=== PATIENT | male | born 1985 | race Two or more races ===

== ENCOUNTER → 2025-03-02 | Emergency (ER) | payer MEDICAID, OTHER ==
[~2025-03-02] VITALS: Ht 185.4 cm; Wt 126.0 kg
[~2025-03-02] MED LIST: IBU600T PO
[2025-03-02 21:52] VITALS: BP 139/82; PULSE 84; RESP 18; TEMP 98.3; O2SAT 98
== END ==
LOC: ER 20:16
DX: M25.562 Pain in left knee (principal); Z53.21 Procedure and treatment not carried out due to patient leaving prior to being seen by health care provider

== ENCOUNTER 2025-03-03 05:07 | Emergency (ER) | payer MEDICAID ==
[~2025-03-03] VITALS: Ht 185.4 cm; Wt 125.4 kg
--- NOTE | 2025-03-03 07:03 | ED.PDOC ---
Musculoskeletal HPI Comments 39 year old male presents to the ED with a chief complaint of LT knee pain onset 1 day. Patient states he slipped, landed on LT knee, is currently experiencing LT knee pain. Patient states he held onto a rail with LT arm, woke up today experiencing LT shoulder pain. Denies PMHx as well as head injury, LOC, nausea, vomiting, numbness/tingling of extremities. No other symptoms or modifying factors present at this time. Chief Complaint: Lower Extremity Time Seen by MD: 06:55 Reviewed Notes: Medications, Allergies Allergies: Coded Allergies: NO KNOWN ALLERGIES (Unverified , 03/02/25) Home Meds Active Scripts Ibuprofen Micronized (MOTRIN TABLET) 600 Mg Tb, 600 MG PO TID PRN for 3 Days, #9 TAB *Black box warning-NSAIDS can increase risk of AK & hypertension, GI irritation, ulceration, bleed, perferation. Do not use post cardiac surgery. Use short duration/lowest effective dose. Prov:MYRIAM VALLE MD 03/03/25 Information Source: Patient Mode of Arrival: Ambulatory Location: Left Extremity Location: Knee, Shoulder Timing: Days Prehospital treatment: None Severity: Moderate Able to Move Extremity: Yes Bear Weight: Limited Pain: Moderate Mechanism: Spontaneous Circumstances: Fall Onset of Symptoms: After Trauma Symptoms: Pain DVT Risk Factors: NONE Associated signs and symptoms: Shoulder pain, Knee pain Past Medical History PAST MEDICAL HISTORY: Denies Surgical History: Denies all surgeries Family History Family History: Reviewed,noncontributory to illness, No family hx of Cancer, No family hx of DM, No family hx of Heart daquan, No family hx of HTN, No family hx ofKidney daquan, No family hx of Liver daquan, No family hx of Lung daquan, No family hx of Stroke Social History Smoker: Cigarettes Alcohol: Denies ETOH Use Drugs: Denies Drug Use Lives In: Home Constitutional: denies: chills, diaphoresis, fatigue, fever, malaise, sweats, weakness, others EENTM: denies: blurred vision, double vision, ear bleeding, ear discharge, ear drainage, ear pain, ear ringing, eye pain, eye redness, hearing loss, mouth pain, mouth swelling, nasal discharge, nose bleeding, nose congestion, nose pain, photophobia, tearing, throat pain, throat swelling, voice changes, others Respiratory: denies: cough, hemoptysis, orthopnea, SOB at rest, shortness of breath, SOB with excertion, stridor, wheezing, others Cardiovascular: denies: chest pain, dizzy spells, diaphoresis, Dyspnea on exertion, edema, irregular heart beat, left arm pain, lightheadedness, palpitations, PND, syncope, others Gastrointestinal: denies: abdomen distended, abdominal pain, blood streaked bowels, constipated, diarrhea, dysphagia, difficulty swallowing, hematemesis, melena, nausea, poor appetite, poor fluid intake, rectal bleeding, rectal pain, vomiting, others Genitourinary: denies: burning, dysuria, flank pain, frequency, hematuria, incontinence, penile discharge, penile sore, pain, testicle pain, testicle swelling, urgency, others Neurological: denies: dizziness, fainting, headache, left sided numbness, left sided weakness, numbness, paresthesia, pre-existing deficit, right sided numbness, right sided weakness, seizure, speech problems, tingling, tremors, weakness, others Musculoskeletal: reports: others (Lt knee pain, LT shoulder pain); denies: back pain, gout, joint pain, joint swelling, muscle pain, muscle stiffness, neck pain Integumetry: denies: bruises, change in color, change in hair/nails, dryness, l aceration, lesions, lumps, rash, wounds, others Allergic/Immunocompromised: denies: Difficulty Healing, Frequent Infections, Hives, Itching, others Hematologic/Lymphatic: denies: anemia, blood clots, easy bleeding, easy bruising, swollen glands, others Endocrine: denies: excessive hunger, excessive sweating, excessive thirst, excessive urination, flushing, intolerance to cold, intolerance to heat, unexplained weight gain, unexplained weight loss, others Psychiatric: denies: anxiety, bipolar disorder, depression, hopeless, panic disorder, schizophrenia, sleepless, suicidal, others All Other Systems: Reviewed and Negative Physical Exam General Appearance: Moderate Distress, Normal HEENT: Normal ENT Inspection, Pharynx Normal, TMs Normal Neck: Full Range of Motion, Non-Tender, Normal, Normal Inspection Respiratory: Chest Non-Tender, Lungs Clear, No Accessory Muscle Use, No Respiratory Distress, Normal Breath Sounds Cardiovascular: No Edema, No JVD, No Murmur, No Gallop, Normal Peripheral Pulses, Regular Rate/Rhythm Breast Exam: Deferred Gastrointestinal: No Organomegaly, Non Tender, No Pulsatile Mass, Normal Bowel Sounds, Soft Genitalia: Deferred Pelvic: Deferred Rectal: Deferred Extremities: No calf tenderness, Normal capillary refill, Normal inspection, Normal range of motion, Non-tender, No pedal edema Musculoskeletal : Apperance: Normal Neurologic: Alert, waste cotton cleaner II-XII nml as Tested, No Motor Deficits, Normal Affect, Normal Mood, No Sensory Deficits Cerebellar Function: Normal Reflexes: Normal Skin: Dry, Normal Color, Warm Peripheral Pulses: 3+ Radial (R), 3+ Radial (L) Lymphatic: No Adenopathy Was a procedure done? Was a procedure done?: No Differential Diagnosis EXT Differential Diagnosis: Sprain, Strain X-Ray, Labs, Meds, VS Vital Signs Date Time Temp Pulse Resp B/P (MAP) Pulse Ox O2 Delivery O2 Flow Rate FiO2 03/03/25 05:42 97.5 57 16 127/81 (96) 99 97.5 Current Medications Medications (Trade) Dose Ordered Sig/[place] Route Start Time Stop Time Status Last Admin Acetaminophen/ Hydrocodone Bitart ([place] 5/325MG Tab) 1 tab ONCE ONCE PO 03/03/25 07:15 03/03/25 07:16 DC 03/03/25 08:37 Patient alert. Came in because of left knee pain. Status post fall. Vitals stable. Answering questions Ambulating. No sign of any distress. Good circulation Possible muscle strain. Was given prescription of Motrin. X-ray reviewed does not show any acute process. Explained to the patient. Was told to follow up with his primary care physician. Was told to come back if there is any problem. [place] [id number] Ph: [phone] DIAGNOSTIC IMAGING Diagnostic Imaging Report : [id number] Signed PATIENT: JOSH NAGELACCT: [id number] UNIT: [id number] : 1985 LOC: ER ROOM / BED: / AGE / SEX: 39 / M ADM STATUS: REG ER SERVICE [id number] ORDERING PHYSICIAN: MYRIAM VALLE MD PROCEDURE(s): LKNE2 - L KNEE 2V XRAY REASON: fall ORDER NUMBER(s): [id number], ACCESSION NUMBER(s): [id number] EXAM: XY L KNEE 2V XRAY HISTORY: fall COMPARISON: None TECHNIQUE: AP and lateral views of the left knee were performed. FINDINGS: No acute fracture is identified about the left knee. No significant joint space narrowing. There is a knee joint effusion. IMPRESSION: 1. No acute fracture or dislocation. 2. Knee joint effusion. ATED BY: EVA PALACIO MD DICTATED DATE/TIME: 03/03/25808 SIGNED BY: EVA PALACIO MD SIGNED DATE/TIME: 03/03/25808 CC: Time of 1ST Reevaluation: : Reevaluation 1ST: Improved Patient Education/Counseling: Diagnosis, Treatment, Prognosis Family Education/Counseling: No Family Present Departure 1 Departure Time of Disposition: 07:08 Impression: Primary Impression: Muscle strain Disposition: 01 HOME / SELF CARE / HOMELESS Condition: Good e-Prescriptions Ibuprofen Micronized (MOTRIN TABLET) 600 Mg Tb 600 MG PO TID PRN for 3 Days, #9 TAB *Black box warning-NSAIDS can increase risk of AK & hypertension, GI irritation, ulceration, bleed, perferation. Do not use post cardiac surgery. Use short duration/lowest effective dose. Prov: MYRIAM VALLE MD 03/03/25 Discharged With: Self Critical Care Note Critical Care Time?: No Stability Stability form required: No Heart Score Heart Score: Heart Score Response (Comments) Value History N/A 0 EKG N/A 0 Age N/A 0 Risk Factors N/A 0 Troponin N/A 0 Total 0 I personally scribed for MYRIAM VALLE MD ([email or web address]) on 03/03/25 at 07:03. Electronically submitted by Martha Leavitt ([email or web address]). I personally scribed for MYRIAM VALLE MD ([email or web address]) on 03/03/25 at 08:38. Electronically submitted by Martha Leavitt ([email or web address]). MYRIAM VALLE MD Mar 03, 2025 07:03
[2025-03-03] MEDS ORDERED: IBU600T PO (07:09)
--- NOTE | 2025-03-03 08:11 | DVH ---
EXAM: XY L KNEE 2V XRAY HISTORY: fall COMPARISON: None TECHNIQUE: AP and lateral views of the left knee were performed. FINDINGS: No acute fracture is identified about the left knee. No significant joint space narrowing. There is a knee joint effusion. IMPRESSION: 1. No acute fracture or dislocation. 2. Knee joint effusion.
[2025-03-03] MEDS: HYDROcodone-ACET 5/325MG TAB PO ONE (08:37)
[2025-03-03 08:53] VITALS: BP 126/71; PULSE 61; RESP 20; TEMP 97.7; O2SAT 96
== END 2025-03-03 09:04 | disposition home or self-care (01) ==
LOC: ER 05:07
DX: S86.912A Strain of unspecified muscle(s) and tendon(s) at lower leg level, left leg, initial encounter (principal); S46.912A Strain of unspecified muscle, fascia and tendon at shoulder and upper arm level, left arm, initial encounter; F17.210 Nicotine dependence, cigarettes, uncomplicated; Z79.899 Other long term (current) drug therapy; W01.0XXA Fall on same level from slipping, tripping and stumbling without subsequent striking against object, initial encounter; Y93.89 Activity, other specified; Y92.89 Other specified places as the place of occurrence of the external cause; Y99.8 Other external cause status
CPT/HCPCS: 73560